=== PATIENT | female | born 2000 | race Caucasian/White ===

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

== ENCOUNTER 2019-04-20 14:22 | Emergency (ER) | payer SELFPAY ==
[2019-04-20 14:32] VITALS: BP 133/72
--- NOTE | 2019-04-20 14:43 | ER Document Report ---
ED Medical Screen (RME) - General TRAVEL OUTSIDE OF THE U.S. IN LAST 30 DAYS: No <GRICELDA GERARD - Last Filed: 04/20/19 14:38> <CEDRICDELPHINE - Last Filed: 04/20/19 17:53> - General Chief Complaint: Psych Problem Stated Complaint: PSYCH Time Seen by Provider: 04/20/19 14:37 Primary Care Provider: [facility] [Outside] - Follow up as needed - HPI Notes: 04/20/19 14:38 Patient is a 18-year-old female with an extensive mental health history who presents complaining of suicidal ideations that have "always been there" but has been more frequent lately as she has not been on her medicines due to insurance issues. Patient states that she does not have any plan, but does perform self- harm. She cut up her left forearm last night with scissors which is her normal method of injury. She has no auditory or visual hallucinations. No HI. Denies OCAMPO, fever, neck pain, URI, CP, SOB, Abd pain, dysuria, back pain, or rash. I have treated and performed a rapid initial assessment of this patient. A comprehensive ED assessment and evaluation of the patient, analysis of test results and completion of medical decision making process will be conducted by additional ED providers. PHYSICAL EXAMINATION: GENERAL: Well-appearing, well-nourished and in no acute distress. A&Ox4. Answers questions appropriately. LUNGS: Breath sounds clear to auscultation bilaterally and equal. No wheezes rales or rhonchi. HEART: Regular rate and rhythm without murmurs, rubs, gallops. Extremities: No cyanosis, clubbing, or edema b/l. NEUROLOGICAL: Normal speech, normal gait. Cranial nerves grossly intact PSYCH: Normal mood, normal affect. Skin: + scissor abrasions/superficial lacs to the left forearm. (GRICELDA GERARD) - Related Data Allergies/Adverse Reactions: sertraline [From Zoloft] Allergy (Verified 04/20/19 14:28) Past Medical History Pulmonary Medical History: Reports: Hx Asthma Renal/ Medical History: Denies: Hx Peritoneal Dialysis Psychiatric Medical History: Reports: Hx Anxiety, Hx Depression <GRICELDA GERARD - Last Filed: 04/20/19 14:38> - Vital signs Vitals: Temp Pulse Resp BP Pulse Ox 98.5 F 72 16 133/72 H 97 04/20/19 14:29 04/20/19 14:29 04/20/19 14:29 04/20/19 14:29 04/20/19 14:29 Course - Laboratory Result Diagrams: 04/20/19 14:45 04/20/19 14:45 <DELPHINE STEELE - Last Filed: 04/20/19 17:53> - Vital Signs Vital signs: Temp Pulse Resp BP Pulse Ox 98.5 F 72 16 133/72 H 97 04/20/19 14:29 04/20/19 14:29 04/20/19 14:29 04/20/19 14:29 04/20/19 14:29 - Laboratory Laboratory results interpreted by me: 04/20/19 04/20/19 14:45 14:45 RDW 14.3 H Salicylates < 1.0 L Acetaminophen < 10 L Doctor's Discharge <GRICELDA GERARD - Last Filed: 04/20/19 14:38> <DELPHINE STEELE - Last Filed: 04/20/19 17:53> - Discharge Clinical Impression: Self-injurious behavior, History of bipolar disorder Condition: Stable Disposition: AGAINST MEDICAL ADVICE Additional Instructions: You have been evaluated by both medical and behavioral health providers while in the emergency department. You have been cleared from both acute medical and psychiatric services. It is felt you increase in mood lability and self injury is related to being off prescribed medication for a month (per your report) and you did not want to be started on new medication. You stated you recently relocated back to [place] From [place] and are in Medicaid transition. The Emergency Department Physician is willing to provide scripts for medications. You should take them as directed and link to a local outpatient mental health provider for ongoing care. Bipolar Disorder Bipolar disorder is also called manic-depressive disorder. Depression alternates with brain hyperactivity called violeta. Each phase lasts from several days to a few weeks. We don't know exactly what causes bipolar disorder, but it's treatable. During the "manic phase," you may feel elated and energetic. You may have racing thoughts, rapid speech, increased activity, and grandiose ideas. During this time, you may not realize how poor your judgement is. Inappropriate spending, drug abuse, excessive alcohol use, marriage problems, and irresponsible sexual behavior are common during the manic phase. During the "depressive phase," you might feel depressed, guilty, worthless, fatigued, and unable to concentrate. You might have thoughts of suicide. Good treatments are available for bipolar disorder. Hedley is a classic drug for bipolar disorder, and is still often useful. If the manic phase is very mild, an antidepressant alone can be prescribed. If the manic phase is very severe, an antipsychotic medicine (such as Haldol) may be needed. The treatment must be matched to your symptoms, so it's important to work closely with your psychiatric care provider. Contact your physician, the hospital emergency center, crisis line, or your counsellor if you are losing control or having self-destructive thoughts. SUICIDAL IDEATION: (self injurious behavior is similar without intent to kill oneself) Suicidal ideation is a common medical term for thoughts about suicide, which may be as detailed as a formulated plan, without the suicidal act itself. Although most people who undergo suicidal ideation do not commit suicide, some go on to make suicide attempts. The range of suicidal ideation varies greatly from fleeting to detailed planning, role playing, and unsuccessful attempts. While thoughts about suicide are common, most people do not carry out serious actions to commit suicide. Based upon your evaluation and discussion with you, we do not believe you are currently at risk to act upon your thoughts of suicide. You have agreed to return to the Emergency Department, at any time, if you feel inclined to act upon your suicidal thoughts. FOLLOW-UP CARE: You have been provided prescriptions for medications you were discharged with from a recent inpatient hospitalization while in [place]. You should take these as prescribed. You have been provided the outpatient mental health resource sheet with listing of local agencies for ongoing care and [facility] Mobile Crisis number. If you experience worsening or a significant change in your symptoms, notify the physician immediately, utilize mobile crisis or return to the Emergency Department at any time for re- evaluation. Prescriptions: Hedley Carbonate 600 mg PO QHS #60 tablet Prazosin HCl 1 mg PO QHS #30 capsule Trazodone HCl 100 mg PO QHS #30 tablet Escitalopram Oxalate [Lexapro 10 mg Tablet] 10 mg PO DAILY #30 tablet Lamotrigine [Lamictal] 50 mg PO DAILY #60 tablet Pantoprazole Sodium 40 mg PO DAILY #30 tablet. Referrals: [facility] [Outside] - Follow up as needed
[2019-04-20 15:04] LABS: ABSOLUTE BASOPHILS # (AUTO) 0.1 10^3/uL (0.0-0.2); ABSOLUTE EOSINOPHILS # (AUTO) 0.1 10^3/uL (0.0-0.6); ABSOLUTE LYMPHOCYTES (AUTO) 2.6 10^3/uL (0.5-4.7); ABSOLUTE MONOCYTES (AUTO) 0.5 10^3/uL (0.1-1.4); ABSOLUTE NEUT (AUTO) 6.8 10^3/uL (1.7-8.2); BASOPHILS % (AUTO) 0.9 % (0-2); EOSINOPHILS % (AUTO) 1.3 % (0-6); HEMATOCRIT 39.9 % (36.0-47.0); HEMOGLOBIN 13.7 g/dL (12.0-15.5); LYMPHOCYTES % (AUTO) 25.5 % (13-45); MEAN CORPUSCULAR HEMOGLOBIN 29.8 pg (27.0-33.4); MEAN CORPUSCULAR HGB CONC 34.4 g/dL (32.0-36.0); MEAN CORPUSCULAR VOLUME 87 fl (80-97); MONOCYTES % (AUTO) 5.4 % (3-13); PLATELET COUNT 307 10^3/uL (150-450); RED BLOOD COUNT 4.61 10^6/uL (3.72-5.28); RED CELL DISTRIBUTION WIDTH 14.3 % (11.5-14.0); SEGMENTED NEUTROPHILS % (AUTO) 66.9 % (42-78); TOTAL CELLS COUNTED % (AUTO) 100 %; WHITE BLOOD COUNT 10.1 10^3/uL (4.0-10.5)
[2019-04-20 15:23] LABS: ALANINE AMINOTRANSFERASE 20 U/L (9-52); ALBUMIN 4.6 g/dL (3.5-5.0); ALKALINE PHOSPHATASE 82 U/L (38-126); ANION GAP 9 (5-19); ASPARTATE AMINO TRANSFERASE 17 U/L (14-36); BILIRUBIN,DIRECT 0.2 mg/dL (0.0-0.4); BILIRUBIN,TOTAL 0.3 mg/dL (0.2-1.3); BLOOD UREA NITROGEN 12 mg/dL (7-20); CALCIUM 9.7 mg/dL (8.4-10.2); CARBON DIOXIDE 25 mmol/L (22-30); CHLORIDE 105 mmol/L (98-107); GLUCOSE 86 mg/dL (75-110); POTASSIUM 4.3 mmol/L (3.6-5.0); SODIUM 139.3 mmol/L (137-145); TOTAL PROTEIN 7.8 g/dL (6.3-8.2)
[2019-04-20 15:25] LABS: ACETAMINOPHEN < 10 ug/mL (10-30); ALCOHOL < 10 mg/dL (NONE DETECTED); SALICYLATE < 1.0 mg/dL (2.0-20.0)
--- NOTE | 2019-04-20 15:30 | ER Document Report ---
ED Psych Disorder / Suicide <SHAHIDMONTEZ - Last Filed: 04/20/19 16:26> - General TRAVEL OUTSIDE OF THE U.S. IN LAST 30 DAYS: No <DELPHINE STEELE - Last Filed: 04/20/19 18:05> - General Chief Complaint: Psych Problem Stated Complaint: PSYCH Time Seen by Provider: 04/20/19 14:37 Primary Care Provider: [facility] [Outside] - Follow up as needed Notes: Patient is here because she is feeling depressed and suicidal. She has had depression since she was 13 years old. She has been on medications, but does not have insurance and has not been on medications recently. She was living in [place] and moved back to this area the first of this month. She was living with her mother but she does not get along well with her so she moved out and has moved in with her father. She wants to go to [facility] but when she went there, she was told there were no beds currently and that she should come here. Patient says that she cut her left forearm multiple times. No other injuries or complaints. Patient has a history of multiple personality disorders, PTSD, insomnia, depression, anxiety, bipolar. (DELPHINE STEELE) - Related Data Allergies/Adverse Reactions: sertraline [From Zoloft] Allergy (Verified 04/20/19 14:28) Past Medical History - Social History Smoking Status: Never Smoker Family History: Reviewed & Not Pertinent Patient has suicidal ideation: Yes Patient has homicidal ideation: No Pulmonary Medical History: Reports: Hx Asthma Psychiatric Medical History: Reports: Hx Anxiety, Hx Bipolar Disorder, Hx Depression, Hx Personality Disorder, Hx Post Traumatic Stress Disorder, Other - Multiple personality disorder Insomnia <DELPHINE STEELE - Last Filed: 04/20/19 18:05> Review of Systems <DELPHINE STEELE - Last Filed: 04/20/19 18:05> - Review of Systems Notes: CONSTITUTIONAL : Denies fever. CARDIOVASCULAR: Denies chest pain. RESPIRATORY: Denies cough, chest congestion, or shortness of breath. GASTROINTESTINAL: Denies abdominal pain or nausea, vomiting, or diarrhea. GENITOURINARY: Denies difficulty or painful urinating, urinary frequency, blood in urine. (DELPHINE STEELE) Physical Exam - Vital signs Interpretation: Normal <DELPHINE STEELE - Last Filed: 04/20/19 18:05> - Vital signs Vitals: Temp Pulse Resp BP Pulse Ox 98.5 F 72 16 133/72 H 97 04/20/19 14:29 04/20/19 14:29 04/20/19 14:29 04/20/19 14:29 04/20/19 14:29 Notes: She was very quiet and calm and cooperative throughout my initial interview to get her history and my physical examination. PHYSICAL EXAMINATION: GENERAL: Well-appearing, no acute distress. HEAD: Atraumatic, normocephalic. NECK: Normal range of motion, supple. LUNGS: Breath sounds clear and equal bilaterally. HEART: Regular rate and rhythm without murmurs heard. ABDOMEN: Soft, nontender. No guarding or rebound or masses felt Skin: Patient's left forearm, volar aspect, has numerous linear superficial cuts none of these wounds require suturing. (DELPHINE STEELE) Course - Laboratory Result Diagrams: 04/20/19 14:45 04/20/19 14:45 <MONTEZ KEY - Last Filed: 04/20/19 16:26> - Laboratory Result Diagrams: 04/20/19 14:45 04/20/19 14:45 <DELPHINE STEELE - Last Filed: 04/20/19 18:05> - Re-evaluation Re-evalutation: 04/20/19 18:00 Soon after my examination, patient began yelling and screaming that she wanted to leave and did not want to stay and this progressed into very loud profanities and obscenities and vulgar language. 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 We congregated all of security with the plan to restrain the patient and give her some sedatives such as Geodon IM. Mental health has already seen this patient and/or familiar with this patient and felt that she was going to be able to be discharged because she is not believed to be a risk to herself or to anyone else. She needs her medications refilled, but they did not feel that we needed to involuntarily commit her. Patient would not allow me to ask any further questions or would not answer any further questions, but I have to say that I believe the patient is mentally capable of making decisions for herself and is not a risk of danger to herself or anyone else at this time. Patient appears to be medically stable for discharge. I wrote the patient 6 prescriptions for her medications, each of them for a month supply. Father is going to be in charge of handling the patient's medications. Patient was discharged with her father. (DELPHINE STEELE) - Vital Signs Vital signs: Temp Pulse Resp BP Pulse Ox 98.5 F 72 16 133/72 H 97 04/20/19 14:29 04/20/19 14:29 04/20/19 14:29 04/20/19 14:29 04/20/19 14:29 - Laboratory Laboratory results interpreted by me: 04/20/19 04/20/19 14:45 14:45 RDW 14.3 H Salicylates < 1.0 L Acetaminophen < 10 L Discharge <MONTEZ KEY - Last Filed: 04/20/19 16:26> <DELPHINE STEELE - Last Filed: 04/20/19 18:05> - Discharge Clinical Impression: Self-injurious behavior, History of bipolar disorder Condition: Stable Disposition: AGAINST MEDICAL ADVICE Additional Instructions: You have been evaluated by both medical and behavioral health providers while in the emergency department. You have been cleared from both acute medical and psychiatric services. It is felt you increase in mood lability and self injury is related to being off prescribed medication for a month (per your report) and you did not want to be started on new medication. You stated [place] recently [place] and are in [place] transition. The Emergency Department Physician is willing to provide scripts for medications. You should take them as directed and link to a local outpatient mental health provider for ongoing care. Bipolar Disorder Bipolar disorder is also called manic-depressive disorder. Depression alternates with brain hyperactivity called violeta. Each phase lasts from several days to a few weeks. We don't know exactly what causes bipolar disorder, but it's treatable. During the "manic phase," you may feel elated and energetic. You may have racing thoughts, rapid speech, increased activity, and grandiose ideas. During this time, you may not realize how poor your judgement is. Inappropriate spending, drug abuse, excessive alcohol use, marriage problems, and irresponsible sexual behavior are common during the manic phase. During the "depressive phase," you might feel depressed, guilty, worthless, fatigued, and unable to concentrate. You might have thoughts of suicide. Good treatments are available for bipolar disorder. Rew is a classic drug for bipolar disorder, and is still often useful. If the manic phase is very mild, an antidepressant alone can be prescribed. If the manic phase is very severe, an antipsychotic medicine (such as Haldol) may be needed. The treatment must be matched to your symptoms, so it's important to work closely with your psychiatric care provider. Contact your physician, the hospital emergency center, crisis line, or your counsellor if you are losing control or having self-destructive thoughts. SUICIDAL IDEATION: (self injurious behavior is similar without intent to kill oneself) Suicidal ideation is a common medical term for thoughts about suicide, which may be as detailed as a formulated plan, without the suicidal act itself. Although most people who undergo suicidal ideation do not commit suicide, some go on to make suicide attempts. The range of suicidal ideation varies greatly from fleeting to detailed planning, role playing, and unsuccessful attempts. While thoughts about suicide are common, most people do not carry out ser ious actions to commit suicide. Based upon your evaluation and discussion with you, we do not believe you are currently at risk to act upon your thoughts of suicide. You have agreed to return to the Emergency Department, at any time, if you feel inclined to act upon your suicidal thoughts. FOLLOW-UP CARE: You have been provided prescriptions for medications you were discharged with from a recent inpatient hospitalization while in [place]. You should take these as prescribed. You have been provided the outpatient mental health resource sheet with listing of local agencies for ongoing care and [facility] Mobile Crisis number. If you experience worsening or a significant change in your symptoms, notify the physician immediately, utilize mobile crisis or return to the Emergency Department at any time for re- evaluation. Prescriptions: Rew Carbonate 600 mg PO QHS #60 tablet Prazosin HCl 1 mg PO QHS #30 capsule Trazodone HCl 100 mg PO QHS #30 tablet Escitalopram Oxalate [Lexapro 10 mg Tablet] 10 mg PO DAILY #30 tablet Lamotrigine [Lamictal] 50 mg PO DAILY #60 tablet Pantoprazole Sodium 40 mg PO DAILY #30 tablet. Referrals: [facility] [Outside] - Follow up as needed
--- NOTE | 2019-04-21 07:50 | EKG REPORT ---
SEVERITY:- NORMAL ECG - SINUS RHYTHM : Confirmed by: Heena Garcia MD 21-Apr-2019 07:50:04
--- NOTE | 2019-04-21 07:50 | EKG REPORT ---
SEVERITY:- NORMAL ECG - SINUS RHYTHM : Confirmed by: Heena Garcia MD 21-Apr-2019 07:49:19
== END 2019-04-20 17:00 | disposition left against medical advice (07) ==
LOC: ER 14:22
DX: F32.9 Major depressive disorder, single episode, unspecified (principal); R45.851 Suicidal ideations; F44.81 Dissociative identity disorder; F43.10 Post-traumatic stress disorder, unspecified; G47.00 Insomnia, unspecified
CPT/HCPCS: 36415; 80053; 80307; 84703; 85025; 93005; 93010; 99284

== ENCOUNTER 2019-08-12 12:24 | Emergency (ER) | payer MEDICAID, OTHER ==
--- NOTE | 2019-08-12 12:37 | ER Document Report ---
ED General - General Stated Complaint: POSSIBLE OVERDOSE Time Seen by Provider: 08/12/19 12:35 TRAVEL OUTSIDE OF THE U.S. IN LAST 30 DAYS: No - HPI Patient complains to provider of: Suicide attempt Notes: 19-year-old female presents after suicide attempt. Patient took an overdose of trazodone. She took approximately 16 100 mg trazodone tablets. Patient was also cutting herself on her left forearm prior to the suicide attempt. Patient denies nausea or vomiting. Patient is mildly somnolent. The medications were her own. Denies coingestions. - Related Data Allergies/Adverse Reactions: sertraline [From Zoloft] Allergy (Verified 04/20/19 14:28) Past Medical History - Social History Smoking Status: Unknown if Ever Smoked Family History: Reviewed & Not Pertinent Pulmonary Medical History: Reports: Hx Asthma Renal/ Medical History: Denies: Hx Peritoneal Dialysis Psychiatric Medical History: Reports: Hx Anxiety, Hx Bipolar Disorder, Hx Depression, Hx Personality Disorder, Hx Post Traumatic Stress Disorder Review of Systems - Review of Systems Notes: REVIEW OF SYSTEMS: CONSTITUTIONAL: -fevers, -chills EENT: -eye pain, -difficulty swallowing, -nasal congestion CARDIOVASCULAR: -chest pain, -syncope. RESPIRATORY: -cough, -SOB GASTROINTESTINAL: -abdominal pain, -nausea, -vomiting, -diarrhea GENITOURINARY: -dysuria, -hematuria MUSCULOSKELETAL: -back pain, -neck pain SKIN: -rash or skin lesions. HEMATOLOGIC: -easy bruising or bleeding. LYMPHATIC: -swollen, enlarged glands. NEUROLOGICAL: -altered mental status or loss of consciousness, -headache, - neurologic symptoms PSYCHIATRIC: Positive for suicidal ideation ALL OTHER SYSTEMS REVIEWED AND NEGATIVE. Physical Exam - Vital signs Vitals: Temp 98.6 F 08/12/19 12:43 - Notes Notes: PHYSICAL EXAMINATION: GENERAL: Somnolent, severe acute distress HEAD: Atraumatic, normocephalic. EYES: Pupils equal round and reactive to light, extraocular movements intact, sclera anicteric, conjunctiva are normal. ENT: nares patent, oropharynx clear without exudates. Moist mucous membranes. NECK: Normal range of motion, supple without lymphadenopathy LUNGS: Breath sounds clear to auscultation bilaterally and equal. No wheezes rales or rhonchi. HEART: Regular rate and rhythm without murmurs ABDOMEN: Soft, nontender, normoactive bowel sounds. No guarding, no rebound. No masses appreciated. EXTREMITIES: Normal range of motion, no pitting or edema. No cyanosis. NEUROLOGICAL: Cranial nerves grossly intact. Normal speech, normal gait. Nor mal sensory and motor exams. PSYCH: flatten Affect SKIN: Warm, Dry, normal turgor, no rashes or lesions noted. Course - Re-evaluation Re-evalutation: 08/12/19 12:52 , 19-year-old presents after significant trazodone overdose. 2 large-bore IVs quickly established. Begin aggressive fluid resuscitation. Consult poison control center. Will order extensive lab work-up EKG. Plan of care at this time. 08/12/19 14:19 Coingestions. EKG is unremarkable remainder of exam unremarkable. Patient observed in the department. Patient will be admitted to the hospital involuntary commitment paperwork. - Vital Signs Vital signs: Temp Pulse Resp BP Pulse Ox 98.6 F 08/12/19 12:43 - Laboratory Result Diagrams: 08/12/19 12:35 08/12/19 12:35 Laboratory results interpreted by me: 08/12/19 08/12/19 08/12/19 12:35 12:35 13:58 RDW 15.5 H Glucose 129 H Urine Ketones TRACE H Urine Blood SMALL H Urine Urobilinogen 2.0 H Ur Leukocyte Esterase TRACE H Salicylates < 1.0 L Acetaminophen < 10 L - EKG Interpretation by Me Additional EKG results interpreted by me: 08/12/19 12:53 Sinus rhythm 72 bpm, no ST elevations or depressions, QRS interval 80, QTc normal. Critical Care Note - Critical Care Note Total time excluding time spent on procedures (mins): 36 Discharge - Discharge Clinical Impression: Suicidal ideation Overdose Qualifiers: Encounter type: initial encounter Injury intent: intentional self-harm Qualified Code(s): T50.902A - Poisoning by unspecified drugs, medicaments and biological substances, intentional self-harm, initial encounter Condition: Serious Disposition: PSYCH HOSP/UNIT
[2019-08-12] MEDS ORDERED: NORMAL SALINE 1000 ML 1,000 ML IV ONE (12:44)
[2019-08-12 12:57] LABS: ABSOLUTE EOSINOPHILS # (AUTO) 0.1 10^3/uL (0.0-0.6); ABSOLUTE LYMPHOCYTES (AUTO) 1.8 10^3/uL (0.5-4.7); ABSOLUTE MONOCYTES (AUTO) 0.3 10^3/uL (0.1-1.4); ABSOLUTE NEUT (AUTO) 3.6 10^3/uL (1.7-8.2); BASOPHILS % (AUTO) 0.6 % (0-2); EOSINOPHILS % (AUTO) 1.6 % (0-6); HEMATOCRIT 41.7 % (36.0-47.0); HEMOGLOBIN 14.1 g/dL (12.0-15.5); MEAN CORPUSCULAR HEMOGLOBIN 28.9 pg (27.0-33.4); MEAN CORPUSCULAR HGB CONC 33.7 g/dL (32.0-36.0); MEAN CORPUSCULAR VOLUME 86 fl (80-97); MONOCYTES % (AUTO) 5.7 % (3-13); PLATELET COUNT 271 10^3/uL (150-450); RED BLOOD COUNT 4.87 10^6/uL (3.72-5.28); RED CELL DISTRIBUTION WIDTH 15.5 % (11.5-14.0); SEGMENTED NEUTROPHILS % (AUTO) 61.1 % (42-78); TOTAL CELLS COUNTED % (AUTO) 100 %; WHITE BLOOD COUNT 5.9 10^3/uL (4.0-10.5)
[2019-08-12 13:22] LABS: ALBUMIN 4.3 g/dL (3.5-5.0); ALKALINE PHOSPHATASE 82 U/L (38-126); ANION GAP 12 (5-19); ASPARTATE AMINO TRANSFERASE 22 U/L (14-36); BILIRUBIN,DIRECT 0.1 mg/dL (0.0-0.4); BILIRUBIN,TOTAL 0.4 mg/dL (0.2-1.3); BLOOD UREA NITROGEN 12 mg/dL (7-20); CALCIUM 9.2 mg/dL (8.4-10.2); CARBON DIOXIDE 25 mmol/L (22-30); CHLORIDE 101 mmol/L (98-107); GLUCOSE 129 mg/dL (75-110); POTASSIUM 3.7 mmol/L (3.6-5.0); TOTAL PROTEIN 7.3 g/dL (6.3-8.2)
[2019-08-12 13:25] LABS: ACETAMINOPHEN < 10 ug/mL (10-30); ALCOHOL < 10 mg/dL (NONE DETECTED); SALICYLATE < 1.0 mg/dL (2.0-20.0)
[2019-08-12 14:15] LABS: APPEARANCE,URINE SLIGHTLY-CLOUDY; BILIRUBIN,URINE NEGATIVE (NEGATIVE); COLOR,URINE YELLOW; GLUCOSE, URINE NEGATIVE (NEGATIVE); KETONES,URINE TRACE mg/dL (NEGATIVE); LEUKOCYTE ESTERASE,URINE TRACE (NEGATIVE); NITRITE,URINE NEGATIVE (NEGATIVE); PROTEIN,URINE NEGATIVE (NEGATIVE); URINE SPECIFIC GRAVITY 1.023
[2019-08-12 14:29] LABS: URINE AMPHETAMINES SCREEN NEGATIVE; URINE BARBITURATES SCREEN NEGATIVE; URINE BENZODIAZEPINES SCREEN NEGATIVE; URINE COCAINE SCREEN NEGATIVE; URINE MARIJUANA (THC) SCREEN UNCONFIRMED POSITIVE; URINE METHADONE SCREEN NEGATIVE; URINE PHENCYCLIDINE SCREEN NEGATIVE
--- NOTE | 2019-08-12 16:27 | PSYCHOLOGICAL NOTE ---
Psych Note - Psych Note Date seen by psych provider: 08/12/19 Time seen by psych provider: 14:15 - 1st attempt [id number] Psych Note: Reason For Consult:intentional overdose Consent Permissions:none provided Patient is alert and orientated to person, place, time and circumstance. Mood is euthymic with congruent affect as evidenced by smiling, laughing and engaging with clinician. Patient denies current suicidal and homicidal ideation; admits to suicidal gesture of intentional overdose. Delusions are absent and behaviors congruent with an intact reality based presentation I organized and linear thought process. Eye contact is well-maintained. Conversational speech is within normal rate, tone and prosody. Intellectual abilities appear to be within the average range. Attention and concentration are good. Insight, judgment, impulse control are fair. Diagnosis: Bipolar Borderline personality disorder Medication recommendations per [facility]'s contracted psychiatrist Dr. Marcello JOHNSON are as follows Continue home medications Impression\plan: Patient is cleared from acute psychiatric services. Patient admits to intentional overdose after an argument with her father. She immediately regretted her decision and became upset with herself so engage in maladaptive coping skill of cutting Then called 911 for assistance. Patient denies wanting to . Patient is recommended to follow-up with her outpatient mental health services, [facility]. Dr. Brown was consulted to care management of this patient; attending physicians in agreement with recommendations and disposition.
--- NOTE | 2019-08-12 19:05 | EKG REPORT ---
SEVERITY:- BORDERLINE ECG - SINUS RHYTHM PROBABLE LEFT ATRIAL ABNORMALITY BORDERLINE T ABNORMALITIES, ANTERIOR LEADS : Confirmed by: Tommy Garcia MD 12-Aug-2019 19:04:49
== END 2019-08-12 16:31 | disposition home or self-care (01) ==
LOC: ER 12:24
DX: T43.212A Poisoning by selective serotonin and norepinephrine reuptake inhibitors, intentional self-harm, initial encounter (principal); R40.0 Somnolence; J45.909 Unspecified asthma, uncomplicated; Z62.820 Parent-biological child conflict; Z88.8 Allergy status to other drugs, medicaments and biological substances
CPT/HCPCS: 93005; 99291; 96360; 36415; 80307 ×4; 84703; 85025; 80053; 81001; 93010; J7030

== ENCOUNTER → 2020-04-13 | Outpatient (CLI) | payer MEDICAID ==
[2020-04-13 12:05] LABS: ABSOLUTE EOSINOPHILS # (AUTO) 0.3 10^3/uL (0.0-0.6); ABSOLUTE LYMPHOCYTES (AUTO) 1.6 10^3/uL (0.5-4.7); ABSOLUTE MONOCYTES (AUTO) 0.3 10^3/uL (0.1-1.4); ABSOLUTE NEUT (AUTO) 4.1 10^3/uL (1.7-8.2); BASOPHILS % (AUTO) 0.6 % (0-2); EOSINOPHILS % (AUTO) 4.1 % (0-6); HEMATOCRIT 41.5 % (36.0-47.0); HEMOGLOBIN 14.2 g/dL (12.0-15.5); LYMPHOCYTES % (AUTO) 25.7 % (13-45); MEAN CORPUSCULAR HEMOGLOBIN 30.3 pg (27.0-33.4); MEAN CORPUSCULAR HGB CONC 34.1 g/dL (32.0-36.0); MEAN CORPUSCULAR VOLUME 89 fl (80-97); MONOCYTES % (AUTO) 4.2 % (3-13); PLATELET COUNT 285 10^3/uL (150-450); RED BLOOD COUNT 4.68 10^6/uL (3.72-5.28); RED CELL DISTRIBUTION WIDTH 14.4 % (11.5-14.0); SEGMENTED NEUTROPHILS % (AUTO) 65.4 % (42-78); TOTAL CELLS COUNTED % (AUTO) 100 %; WHITE BLOOD COUNT 6.2 10^3/uL (4.0-10.5)
[2020-04-13 12:19] LABS: ALBUMIN 4.4 g/dL (3.5-5.0); ALKALINE PHOSPHATASE 66 U/L (38-126); ANION GAP 7 (5-19); ASPARTATE AMINO TRANSFERASE 28 U/L (14-36); BILIRUBIN,TOTAL 0.4 mg/dL (0.2-1.3); BLOOD UREA NITROGEN 8 mg/dL (7-20); CALCIUM 9.3 mg/dL (8.4-10.2); CARBON DIOXIDE 28 mmol/L (22-30); CHLORIDE 102 mmol/L (98-107); GLUCOSE 131 mg/dL (75-110); LITHIUM 0.4 mEq/L (0.6-1.2); POTASSIUM 4.3 mmol/L (3.6-5.0); TOTAL PROTEIN 7.2 g/dL (6.3-8.2)
[2020-04-13 12:34] LABS: FREE T4 (FREE THYROXINE) 0.97 ng/dL (0.78-2.19)
[2020-04-13 12:49] LABS: THYROID STIMULATING HORMONE 0.89 uIU/mL (0.47-4.68)
== END ==
LOC: OD 11:15
PROVIDERS: ATTEND Nurse Practitioner Psychiatric/Mental Health
DX: F31.9 Bipolar disorder, unspecified (principal)
CPT/HCPCS: 36415; 80053; 80178; 84439; 84443; 85025

== ENCOUNTER 2020-08-10 11:34 | Emergency (ER) | payer MEDICAID ==
[2020-08-10] MEDS ORDERED: ONDANSETRON 4 MG TAB.RAPDIS PO ONE (12:24)
[2020-08-10] MEDS ORDERED: ACETAMINOPHEN 325 MG TABLET PO ONE (12:24)
--- NOTE | 2020-08-10 12:25 | ER Document Report ---
ED Medical Screen (RME) - General Chief Complaint: Cough Stated Complaint: COUGH,CONGESTION,VOMITING Time Seen by Provider: 08/10/20 12:15 Primary Care Provider: SPIKE VELAZQUEZ NP [Primary Care Provider] - Follow up as needed Information source: Patient Notes: Patient presents complaining of cough for the past 2 days with body aches and sore throat. Patient reports epigastric pain for the past month after meals. Patient complains of generalized body aches nausea and vomiting x5 episodes. I have greeted and performed a rapid initial assessment of this patient. A comprehensive ED assessment and evaluation of the patient, analysis of test results and completion of the medical decision making process will be conducted by additional ED providers. TRAVEL OUTSIDE OF THE [place] IN LAST 30 DAYS: No - Related Data Allergies/Adverse Reactions: sertraline [From Zoloft] Allergy (Verified 04/20/19 14:28) Past Medical History Pulmonary Medical History: Reports: Hx Asthma Renal/ Medical History: Denies: Hx Peritoneal Dialysis Psychiatric Medical History: Reports: Hx Anxiety, Hx Bipolar Disorder, Hx Depression, Hx Personality Disorder, Hx Post Traumatic Stress Disorder Physical Exam - Vital signs Vitals: Temp Pulse Resp BP Pulse Ox 98.9 F 97 22 H 115/68 98 08/10/20 11:38 08/10/20 11:38 08/10/20 11:38 08/10/20 11:38 08/10/20 11:38 - Notes Notes: Full physical exam could not be performed due to covid 19 isolation protocols. Constitutional: Nontoxic appearance, no acute distress Eyes: Nonicteric, extraocular movements intact, sclera clear Cardiovascular: No JVD Respiratory: Dry cough, nonlabored breathing, no use of accessory muscles, no tachypnea Muculoskeletal: Moves all extremities well Skin: Normal color Neuro: Awake alert oriented, normal speech Psych: Normal mood and affect Course - Vital Signs Vital signs: Temp Pulse Resp BP Pulse Ox 98.9 F 97 22 H 115/68 98 08/10/20 11:38 08/10/20 11:38 08/10/20 11:38 08/10/20 11:38 08/10/20 11:38 Doctor's Discharge - Discharge Referrals: SPIKE VELAZQUEZ NP [Primary Care Provider] - Follow up as needed
[2020-08-10 12:55] LABS: ABSOLUTE BASOPHILS # (AUTO) 0.1 10^3/uL (0.0-0.2); ABSOLUTE EOSINOPHILS # (AUTO) 0.1 10^3/uL (0.0-0.6); ABSOLUTE MONOCYTES (AUTO) 0.4 10^3/uL (0.1-1.4); ABSOLUTE NEUT (AUTO) 7.3 10^3/uL (1.7-8.2); BASOPHILS % (AUTO) 0.6 % (0-2); EOSINOPHILS % (AUTO) 1.4 % (0-6); HEMATOCRIT 39.1 % (36.0-47.0); HEMOGLOBIN 13.7 g/dL (12.0-15.5); LYMPHOCYTES % (AUTO) 11.7 % (13-45); MEAN CORPUSCULAR HEMOGLOBIN 31.1 pg (27.0-33.4); MEAN CORPUSCULAR HGB CONC 35.1 g/dL (32.0-36.0); MEAN CORPUSCULAR VOLUME 89 fl (80-97); MONOCYTES % (AUTO) 4.5 % (3-13); PLATELET COUNT 229 10^3/uL (150-450); RED CELL DISTRIBUTION WIDTH 14.4 % (11.5-14.0); SEGMENTED NEUTROPHILS % (AUTO) 81.8 % (42-78); TOTAL CELLS COUNTED % (AUTO) 100 %; WHITE BLOOD COUNT 8.9 10^3/uL (4.0-10.5)
[2020-08-10 13:03] LABS: APPEARANCE,URINE CLEAR; BILIRUBIN,URINE NEGATIVE (NEGATIVE); COLOR,URINE YELLOW; GLUCOSE, URINE NEGATIVE (NEGATIVE); KETONES,URINE NEGATIVE (NEGATIVE); LEUKOCYTE ESTERASE,URINE NEGATIVE (NEGATIVE); NITRITE,URINE NEGATIVE (NEGATIVE); PROTEIN,URINE NEGATIVE (NEGATIVE); UROBILINOGEN,URINE NEGATIVE mg/dL (<2.0)
[2020-08-10 13:15] LABS: A TYPE INFLUENZA AG NEGATIVE (NEGATIVE); B INFLUENZA AG NEGATIVE (NEGATIVE)
[2020-08-10 13:16] LABS: ALBUMIN 3.8 g/dL (3.5-5.0); ALKALINE PHOSPHATASE 78 U/L (38-126); ANION GAP 9 (5-19); ASPARTATE AMINO TRANSFERASE 56 U/L (14-36); BILIRUBIN,DIRECT 0.3 mg/dL (0.0-0.4); BILIRUBIN,TOTAL 0.3 mg/dL (0.2-1.3); BLOOD UREA NITROGEN 6 mg/dL (7-20); CALCIUM 8.4 mg/dL (8.4-10.2); CARBON DIOXIDE 26 mmol/L (22-30); CHLORIDE 103 mmol/L (98-107); GLUCOSE 120 mg/dL (75-110); POTASSIUM 4.2 mmol/L (3.6-5.0); TOTAL PROTEIN 6.4 g/dL (6.3-8.2)
--- NOTE | 2020-08-10 13:56 | RADIOLOGY REPORT (SQ) ---
EXAM DESCRIPTION: CHEST SINGLE VIEW IMAGES COMPLETED DATE/TIME: 08/10/2020 1:12 pm REASON FOR STUDY: cough COMPARISON: None. NUMBER OF VIEWS: One view. TECHNIQUE: Single frontal radiographic view of the chest acquired. LIMITATIONS: None. FINDINGS: LUNGS AND PLEURA: No opacities, masses or pneumothorax. No pleural effusion. MEDIASTINUM AND HILAR STRUCTURES: No masses. Contour normal. HEART AND VASCULAR STRUCTURES: Heart normal in size. Normal vasculature. BONES: No acute findings. HARDWARE: None in the chest. OTHER: No other significant finding. IMPRESSION: NO SIGNIFICANT RADIOGRAPHIC FINDING IN THE CHEST. TECHNICAL DOCUMENTATION: JOB ID: [id number] 2010 [employer]- All Rights Reserved Reading location - IP/workstation name: [email or web address]
--- NOTE | 2020-08-10 13:58 | RADIOLOGY REPORT (SQ) ---
EXAM DESCRIPTION: U/S ABDOMEN LIMITED W/O DOP IMAGES COMPLETED DATE/TIME: 08/10/2020 1:49 pm REASON FOR STUDY: upper abd pain COMPARISON: None. TECHNIQUE: Dynamic and static grayscale images acquired of the abdomen and recorded on PACS. Additio nal selected color Doppler and spectral images recorded. LIMITATIONS: None. FINDINGS: PANCREAS: No masses. Visualized pancreatic duct normal caliber. LIVER: No masses. Echotexture normal. LIVER VASCULATURE: Normal directional flow of the main portal vein and hepatic veins. GALLBLADDER: Echodensity along the dependent wall of gallbladder consistent with gallstones. No thic kening of gallbladder wall. No pericholecystic fluid collection. ULTRASOUND-DETECTED SNYDER'S SIGN: Not applicable. INTRAHEPATIC DUCTS AND COMMON DUCT: CBD and intrahepatic ducts normal caliber. No filling defects. INFERIOR VENA CAVA: Normal flow. AORTA: No aneurysm. RIGHT KIDNEY: Normal size. Normal echogenicity. No solid or suspicious masses. No hydronephros is. No calcifications. PERITONEAL AND RIGHT PLEURAL SPACE: No ascites or effusions. OTHER: No other significant finding. IMPRESSION: Cholelithiasis. No evidence of acute cholecystitis. TECHNICAL DOCUMENTATION: JOB ID: [id number] 2010 [employer]- All Rights Reserved Reading location - IP/workstation name: [email or web address]
--- NOTE | 2020-08-10 14:28 | ER Document Report ---
ED Flu Like - General Chief Complaint: Flu Symptoms Stated Complaint: COUGH,CONGESTION,VOMITING Time Seen by Provider: 08/10/20 12:15 Primary Care Provider: SPIKE VELAZQUEZ NP [NO LOCAL MD] - Follow up as needed ALISTAIR LUZ MD [ACTIVE STAFF] - Follow up as needed Notes: CHIEF COMPLAINT: Multiple complaints HPI: 20-year-old female presenting with multiple complaints. Patient has had cough with some vomiting over the last 2 to 3 days. No fever. Has had body ache. Patient also reporting that she has been having right upper quadrant pain after eating foods for the last month. Does not have abdominal pain at this time. ROS: See HPI - all other systems were reviewed and are otherwise negative Constitutional: no fever Eyes: no drainage, no blurred vision ENT: no runny nose, no sore throat Cardiovascular: no chest pain Resp: no SOB, + cough GI: + vomiting, no diarrhea, no abdominal pain : no dysuria Integumentary: no rash Allergy: no hives Musculoskeletal: no extremity pain or swelling Neurological: no numbness/tingling, no weakness MEDICATIONS: I agree with the patient medications as charted by the RN. ALLERGIES: I agree with the allergies as charted by the RN. PAST MEDICAL HISTORY/PAST SURGICAL HISTORY: Reviewed and agree as charted by RN. SOCIAL HISTORY: Reviewed and agree as charted by RN. FAMILY HISTORY: No significant familial comorbid conditions directly related to patient complaint EXAM: Reviewed vital signs as charted by RN. CONSTITUTIONAL: Alert and oriented and responds appropriately to questions. Well-appearing; well-nourished HEAD: Normocephalic; atraumatic EYES: PERRL; Conjunctivae clear, sclerae non-icteric ENT: normal nose; positive clear rhinorrhea; moist mucous membranes; pharynx without lesions noted, no uvula edema or deviation, no tonsillar hypertrophy, phonation normal NECK: Supple without meningismus; non-tender; no cervical lymphadenopathy, no masses CARD: RRR; no murmurs, no clicks, no rubs, no gallops; symmetric distal pulses RESP: Normal chest excursion without splinting or tachypnea; breath sounds clear and equal bilaterally; no wheezes, no rhonchi, no rales, pulse oximetry 97% on room air not hypoxic ABD/GI: Obese, normal bowel sounds; non-distended; soft, non-tender, no rebound, no guarding; no palpable organomegaly or masses. BACK: The back appears normal and is non-tender to palpation, there is no CVA tenderness EXT: Normal ROM in all joints; non-tender to palpation; no cyanosis, no effusions, no edema SKIN: Normal color for age and race; warm; dry; good turgor; no acute lesions noted NEURO: Moves all extremities equally; Motor and sensory function intact PSYCH: The patient's mood and manner are appropriate. Grooming and personal hygiene are appropriate. MDM: 20-year-old female presenting with multiple issues. Has had upper respiratory symptoms for 3 days, has had some vomiting episodes over the last 3 days. Has had intermittent right upper quadrant abdominal pain after eating greasy foods for a month. Has no abdominal pain on palpation today. Initial work-up was performed through the triage process. This included lab work, chest x-ray, flu swab which is all negative. Patient has a right upper quadrant ultrasound pending currently for cholelithiasis. TRAVEL OUTSIDE OF THE [place] IN LAST 30 DAYS: No - Related Data Allergies/Adverse Reactions: sertraline [From Zoloft] Allergy (Verified 04/20/19 14:28) Home Medications: pt currently not taking prescribed home medications due to cost of meds Past Medical History - General Information source: Patient - Social History Smoking Status: Current Every Day Smoker Frequency of alcohol use: Social Drug Abuse: None Family History: Reviewed & Not Pertinent Patient has homicidal ideation: No Pulmonary Medical History: Reports: Hx Asthma Renal/ Medical History: Denies: Hx Peritoneal Dialysis Psychiatric Medical History: Reports: Hx Anxiety, Hx Bipolar Disorder, Hx Depression, Hx Personality Disorder, Hx Post Traumatic Stress Disorder Physical Exam - Vital signs Vitals: Temp Pulse Resp BP Pulse Ox 98.9 F 97 22 H 115/68 98 08/10/20 11:38 08/10/20 11:38 08/10/20 11:38 08/10/20 11:38 08/10/20 11:38 Course - Re-evaluation Re-evalutation: 08/10/20 14:48 Patient's ultrasound shows cholelithiasis no cholecystitis. Chest x-ray was negative. Lab work was negative. Influenza test was negative. Patient will be a person under investigation for COVID-19 at this time pending test results. Zofran for nausea. Will prescribe short course of pain medication in case she has recurrent discomfort from her gallstones but will refer patient to surgery clinic for follow-up. Patient will be given strict return precautions. Patient given dietary restrictions. - Vital Signs Vital signs: Temp Pulse Resp BP Pulse Ox 98.9 F 97 22 H 115/68 98 08/10/20 11:38 08/10/20 11:38 08/10/20 11:38 08/10/20 11:38 08/10/20 11:38 - Laboratory Result Diagrams: 08/10/20 12:40 08/10/20 12:40 Laboratory results interpreted by me: 08/10/20 08/10/20 12:40 12:40 RDW 14.4 H Lymph % (Auto) 11.7 L Seg Neutrophils % 81.8 H BUN 6 L Glucose 120 H AST 56 H ALT 69 H Discharge - Discharge Clinical Impression: Person under investigation for COVID-19, Cough Cholelithiasis Qualifiers: Cholelithiasis location: gallbladder Cholecystitis presence: without cholecystitis Biliary obstruction: without biliary obstruction Qualified Code(s): K80.20 - Calculus of gallbladder without cholecystitis without obstruction Vomiting Qualifiers: Vomiting type: unspecified Vomiting Intractability: non-intractable Nausea presence: with nausea Qualified Code(s): R11.2 - Nausea with vomiting, unspecified Condition: Stable Disposition: HOME, SELF-CARE Instructions: COVID-19 Guidance for Persons Under Investigation, Gallbladder Disease (OM) Additional Instructions: You are considered a person under investigation for COVID-19 at this time self quarantine at home pending your test results which may take 2 to 5 days. You should hear from someone at the hospital about your test results. Take Zofran for nausea or vomiting [place] for pain. Avoid any greasy spicy foods. Follow-up with surgery clinic for evaluation of gallbladder disease. It was noted that you have gallstones on your ultrasound today. Your chest x-ray and other lab work did not show acute findings. Your influenza test was negative. Prescriptions: Hydrocodone/Acetaminophen [[place] 5-325 mg Tablet] 1 tab PO Q4 PRN #15 tablet PRN Reason: Ondansetron [Zofran Odt 4 mg Tablet] 1 - 2 tab PO Q4H PRN #15 tab.rapdis PRN Reason: For Nausea/Vomiting Referrals: SPIKE VELAZQUEZ NP [NO LOCAL MD] - Follow up as needed ALISTAIR LUZ MD [ACTIVE STAFF] - Follow up as needed
[2020-08-10 17:04] VITALS: BP 122/84
== END 2020-08-10 17:02 | disposition home or self-care (01) ==
LOC: ER 11:34
DX: K80.20 Calculus of gallbladder without cholecystitis without obstruction (principal); H65.03 Acute serous otitis media, bilateral; R11.2 Nausea with vomiting, unspecified; R05 Cough; F17.200 Nicotine dependence, unspecified, uncomplicated; J45.909 Unspecified asthma, uncomplicated; Z88.8 Allergy status to other drugs, medicaments and biological substances; Z20.828 Contact with and (suspected) exposure to other viral communicable diseases
CPT/HCPCS: 99285; 36415; 87070; 87880; 83690; 84703; 85025; 87635; 87077; 80053; 81001; 87804; 71045; 76705; J3490; S0119; C9803